=== PATIENT | male | born 1995 | race Caucasian/White ===

== ENCOUNTER 2022-06-19 10:16 | Emergency (ER) | payer OTHER ==
[~2022-06-19] VITALS: Ht 188 cm; Wt 91.0 kg
[2022-06-19] MEDS ORDERED: BACITRACIN ZINC OINT UDPKT TOP ONE (10:30)
[2022-06-19] MEDS ORDERED: KETOROLAC 30MG/ML VIAL IM ONE (10:30)
[2022-06-19] MEDS ORDERED: TETANUS, DIPHTHERIA, PERTUSSIS VAC/PF 0.5ML (>10YR OLD) IM ONE (10:30)
[2022-06-19] MEDS ORDERED: ACETAMINOPHEN 325MG TABLET PO ONE (10:30)
[2022-06-19] MEDS ORDERED: LIDOCAINE HCL/PF 1% 10 MG/ML 5ML VIAL INFIL ONE (10:30)
[2022-06-19 10:42] VITALS: BP 138/92
[2022-06-19] MEDS ORDERED: NAPR-681 MT (11:37)
== END 2022-06-19 12:27 | disposition home or self-care (01) ==
LOC: ER 10:16
DX: S01.511A Laceration without foreign body of lip, initial encounter (principal); X58.XXXA Exposure to other specified factors, initial encounter; Y93.9 Activity, unspecified; Y92.89 Other specified places as the place of occurrence of the external cause; Y99.8 Other external cause status
CPT/HCPCS: 12013; 90471; 90715; 96372; 99284; J1885; J3490

== ENCOUNTER 2022-06-21 11:04 | Emergency (ER) | payer OTHER ==
[~2022-06-21] VITALS: Ht 177.8 cm; Wt 91.0 kg
[~2022-06-21 11:04] MED LIST: NAPR-681 MT
[2022-06-21 12:35] VITALS: BP 125/71
== END 2022-06-21 13:39 | disposition home or self-care (01) ==
LOC: ER 11:04
DX: S01.511D Laceration without foreign body of lip, subsequent encounter (principal); Z48.00 Encounter for change or removal of nonsurgical wound dressing; X58.XXXD Exposure to other specified factors, subsequent encounter
CPT/HCPCS: 99281